=== PATIENT | male | born 1980 | race Caucasian/White ===

== ENCOUNTER → 2020-05-05 | Outpatient (CLI) | payer OTHER ==
--- NOTE | 2020-05-07 18:06 | RAD ---
EXAM DESCRIPTION: Tibia/Fibula,Left CLINICAL HISTORY: 39 years Male, OPEN WOUND LEFT LOWER LEG COMPARISON: None. FINDINGS: Frontal and lateral x-ray views of the left tibia and fibula. No fracture. No dislocation. Normal bony mineralization. Mild spurring at the tibial spines. Small accessory ossicle at the inferior patella. No suprapatellar joint effusion. Mild irregularity of the anterior tibial tuberosity. Minimal spurring at the ankle joint. No radiopaque foreign body. Mild soft tissue swelling anterior to the tibia. IMPRESSION: Negative for fracture. Electronically signed by: Simba Mendez MD 05/07/2020 6:05 PM [facility]
== END ==
LOC: RAD 14:13
PROVIDERS: ATTEND Nurse Practitioner Family
DX: S81.802A Unspecified open wound, left lower leg, initial encounter (principal)